=== PATIENT | male | born 2000 | race Caucasian/White ===

== ENCOUNTER 2022-04-09 14:42 | Emergency (ER) | payer OTHER ==
[~2022-04-09 14:42] MED LIST: IBUPROFEN800 MG PO; LODINE CAP 300300 MG PO; NORCO 7.5-3251 EACH PO; PREDNISONE50 MG PO; PROVENTIL HFA6.7 GM INH; ROBITUSSIN100 MG/51 PO; VENTOLIN HFA 66.7 GM INH; ZITHROMAX250 MG PO; ZOFRAN ODT 4 MG4 MG PO
[2022-04-09] MEDS ORDERED: NAPROSYN500 MG PO (19:33)
== END 2022-04-09 20:10 | disposition home or self-care (01) ==
LOC: ER1 14:42
DX: S62.161A Displaced fracture of pisiform, right wrist, initial encounter for closed fracture (principal); F17.210 Nicotine dependence, cigarettes, uncomplicated; X58.XXXA Exposure to other specified factors, initial encounter; Y92.009 Unspecified place in unspecified non-institutional (private) residence as the place of occurrence of the external cause
CPT/HCPCS: 29125; 73110; 73200; 99284

== ENCOUNTER → 2022-04-11 | Outpatient (CLI) | payer OTHER ==
[~2022-04-11] MED LIST changes: +NAPROSYN500 MG PO
== END ==
LOC: KOH-I 13:43
DX: S63.071A Subluxation of distal end of right ulna, initial encounter (principal); S62.161A Displaced fracture of pisiform, right wrist, initial encounter for closed fracture
CPT/HCPCS: 73221